=== PATIENT | female | born 1980 | race Caucasian/White ===

== ENCOUNTER 2016-10-30 12:16 | Emergency (ER) | payer OTHER ==
[2016-10-30 14:12] LABS: HEMOGLOBIN 13.8 gm/dl (12.3-15.3); RED BLOOD COUNT 4.63 M/UL (4.00-5.10); WHITE BLOOD COUNT 17.2 K/UL (4.5-11.0)
[2016-10-30 14:30] LABS: BUN/CREATININE RATIO 20 (0-10)
== END 2016-10-30 20:05 ==
LOC: ER1 12:16
PROVIDERS: Emergency Medicine
DX: S62.620B Displaced fracture of middle phalanx of right index finger, initial encounter for open fracture (principal); V89.2XXA Person injured in unspecified motor-vehicle accident, traffic, initial encounter; Y92.410 Unspecified street and highway as the place of occurrence of the external cause
CPT/HCPCS: 36415; 70450; 71260; 72125; 73130; 73140; 80053; 84703; 85025; 96361; 96372; 96374; 99285; J0690; J1885; J7030; J7050; Q9962